=== PATIENT | male | born 1990 | race Caucasian/White ===

== ENCOUNTER 2018-05-18 22:16 | Emergency (ER) | payer MEDICAID ==
[~2018-05-18 22:16] MED LIST: OXYC-138 PO
== END 2018-05-18 23:05 | disposition left against medical advice (07) ==
LOC: ER 22:16
DX: M79.602 Pain in left arm (principal); Z53.21 Procedure and treatment not carried out due to patient leaving prior to being seen by health care provider; W19.XXXA Unspecified fall, initial encounter; Y93.89 Activity, other specified; Y92.89 Other specified places as the place of occurrence of the external cause; Y99.8 Other external cause status

== ENCOUNTER 2018-06-10 11:37 | Emergency (ER) | payer MEDICAID ==
[~2018-06-10] VITALS: Ht 172.7 cm; Wt 65.9 kg
[2018-06-10 11:38] VITALS: BP 121/77
[2018-06-10] MEDS ORDERED: ketorolac trometh inj. 60 MG/2 ML VIAL IM ONE (12:25)
[2018-06-10] MEDS ORDERED: ACET1TAB12 PO (12:29)
[2018-06-10] MEDS ORDERED: CELE-193 PO (12:29)
[2018-06-10] MEDS ORDERED: HYDR-4353 PO (12:32)
== END 2018-06-10 13:02 | disposition home or self-care (01) ==
LOC: ER 11:37
DX: S22.42XA Multiple fractures of ribs, left side, initial encounter for closed fracture (principal); F15.90 Other stimulant use, unspecified, uncomplicated; F11.90 Opioid use, unspecified, uncomplicated; Z88.8 Allergy status to other drugs, medicaments and biological substances; W22.03XA Walked into furniture, initial encounter; Y93.89 Activity, other specified; Y92.89 Other specified places as the place of occurrence of the external cause; Y99.8 Other external cause status
CPT/HCPCS: 71101; 96372; 99283; J1885

== ENCOUNTER 2018-09-08 05:09 | Emergency (ER) | payer MEDICAID ==
[~2018-09-08] VITALS: Ht 172.7 cm; Wt 65.9 kg
[2018-09-08 05:10] VITALS: BP 118/76
== END 2018-09-08 05:39 | disposition home or self-care (01) ==
LOC: ER 05:10
DX: F15.90 Other stimulant use, unspecified, uncomplicated (principal); Z02.89 Encounter for other administrative examinations; F11.90 Opioid use, unspecified, uncomplicated; Z98.890 Other specified postprocedural states; Z88.6 Allergy status to analgesic agent; Z79.899 Other long term (current) drug therapy
CPT/HCPCS: 99283

== ENCOUNTER 2019-03-13 12:21 | Emergency (ER) | payer MEDICAID ==
[~2019-03-13] VITALS: Ht 170.2 cm; Wt 64.3 kg
[2019-03-13 12:28] VITALS: BP 117/83
[2019-03-13] MEDS ORDERED: ibuprofen tablet 400 MG TABLET PO ONE (13:55)
== END 2019-03-13 14:14 | disposition home or self-care (01) ==
LOC: ER 12:22
DX: M25.561 Pain in right knee (principal); F15.90 Other stimulant use, unspecified, uncomplicated; F11.90 Opioid use, unspecified, uncomplicated; Z98.890 Other specified postprocedural states; Z88.6 Allergy status to analgesic agent
CPT/HCPCS: 29505; 73564; 99283

== ENCOUNTER 2020-07-13 09:06 | Emergency (ER) | payer MEDICAID ==
[~2020-07-13] VITALS: Ht 172.7 cm; Wt 63.6 kg
[2020-07-13 09:10] VITALS: BP 119/86
== END 2020-07-13 10:04 | disposition home or self-care (01) ==
LOC: ER 09:07
DX: S56.811A Strain of other muscles, fascia and tendons at forearm level, right arm, initial encounter (principal); F15.90 Other stimulant use, unspecified, uncomplicated; F11.90 Opioid use, unspecified, uncomplicated; Z98.890 Other specified postprocedural states; Z88.6 Allergy status to analgesic agent; Z79.899 Other long term (current) drug therapy; V89.2XXA Person injured in unspecified motor-vehicle accident, traffic, initial encounter; Y93.89 Activity, other specified; Y92.488 Other paved roadways as the place of occurrence of the external cause; Y99.8 Other external cause status
CPT/HCPCS: 73090; 99283

== ENCOUNTER 2020-07-21 11:42 | Emergency (ER) | payer MEDICAID ==
[~2020-07-21] VITALS: Ht 172.7 cm; Wt 155.0 kg
[2020-07-21 11:56] VITALS: BP 125/91
[2020-07-21] MEDS ORDERED: DIPH25CA83 PO (12:32)
[2020-07-21] MEDS ORDERED: FAMO10TA41 PO (12:32)
[2020-07-21] MEDS ORDERED: PRED10TA PO (12:32)
== END 2020-07-21 12:52 | disposition home or self-care (01) ==
LOC: ER 11:43
DX: L23.7 Allergic contact dermatitis due to plants, except food (principal); F15.90 Other stimulant use, unspecified, uncomplicated; F11.90 Opioid use, unspecified, uncomplicated; Z98.890 Other specified postprocedural states; Z88.6 Allergy status to analgesic agent; Z79.899 Other long term (current) drug therapy
CPT/HCPCS: 99283

== ENCOUNTER 2020-07-24 21:04 | Emergency (ER) | payer MEDICAID ==
[~2020-07-24] VITALS: Ht 172.7 cm; Wt 68.2 kg
[~2020-07-24 21:04] MED LIST changes: +DIPH25CA83 PO; +FAMO10TA41 PO; +PRED10TA PO
[2020-07-24 21:08] VITALS: BP 143/91
== END 2020-07-24 22:19 | disposition left against medical advice (07) ==
LOC: ER 21:05
DX: Z00.00 Encounter for general adult medical examination without abnormal findings (principal); Z53.21 Procedure and treatment not carried out due to patient leaving prior to being seen by health care provider